=== PATIENT | male | born 1985 | race African-American/Black ===

== ENCOUNTER 2023-06-16 06:57 | Emergency (ER) | payer OTHER ==
[~2023-06-16] VITALS: Ht 188 cm; Wt 84.6 kg
[2023-06-16 06:59] VITALS: BP 122/62; TEMP 98; O2SAT 100
== END 2023-06-16 09:04 | disposition home or self-care (01) ==
LOC: M ED 06:57
DX: R19.7 Diarrhea, unspecified (principal)

== ENCOUNTER 2024-09-11 06:40 | Emergency (ER) | payer OTHER ==
[~2024-09-11] VITALS: Ht 188 cm; Wt 88.6 kg
[2024-09-11] MEDS: KETOROLAC 30 MG/ML 1ML VIAL IV ONE (07:24)
[2024-09-11] MEDS: ONDANSETRON 4MG 2ML VIAL IV ONE (07:24)
[2024-09-11 07:52] LABS: BASO % 0.9 % (0.0-1.0); EOS # 0.1 10^3/uL (0.0-0.5); EOS % 3.2 % (0.0-3.0); HEMOGLOBIN 14.9 g/dl (13.5-17.5); LYMPH # 2.7 10^3/uL (1.5-5.0); LYMPH % 61.4 % (24.0-44.0); MEAN CORPUSCULAR VOLUME 80.6 fl (80.0-96.0); MONO # 0.2 10^3/uL (0.0-0.8); MONO % 5.5 % (2.0-8.0); NEUTROPHILS # 1.3 10^3/uL (1.5-8.5); NEUTROPHILS % 28.8 % (36.0-66.0); PLATELET COUNT, AUTOMATED 249 10^3/uL (150-450); RED BLOOD COUNT 4.96 10^6/uL (4.30-6.10); WHITE BLOOD COUNT 4.4 10^3/uL (4.0-10.0)
[2024-09-11] MEDS ORDERED: HOME MED LIST COMPLETE! XX SCH (07:55)
[2024-09-11 08:04] LABS: ALBUMIN 3.7 G/DL (3.2-5.2); BILIRUBIN,DIRECT 0.2 MG/DL (<0.4); BILIRUBIN,TOTAL 0.9 MG/DL (0.3-1.2); TOTAL PROTEIN 7.3 G/DL (5.7-8.2)
[2024-09-11 08:06] LABS: MEAN CORPUSCULAR HGB CONC 37.3 g/dl (32.0-36.5)
[2024-09-11] MEDS ORDERED: ONDA-282 PO (08:43)
[2024-09-11 08:53] VITALS: BP 123/75; TEMP 99; O2SAT 99
== END 2024-09-11 08:56 | disposition home or self-care (01) ==
LOC: M ED 06:40
DX: A08.4 Viral intestinal infection, unspecified (principal); Z79.899 Other long term (current) drug therapy
CPT/HCPCS: 80047; 80076; 83690; 85025; 96374; 99284; J1885; J2405

== ENCOUNTER 2025-08-22 14:44 | Emergency (ER) | payer OTHER ==
[~2025-08-22] VITALS: Ht 188 cm; Wt 82.7 kg
[~2025-08-22 14:44] MED LIST: ONDA-282 PO
[2025-08-22 16:37] VITALS: TEMP 98
[2025-08-22] MEDS ORDERED: IBUP600T42 PO (18:56)
[2025-08-22 19:04] VITALS: BP 134/88; O2SAT 97
== END 2025-08-22 19:05 | disposition home or self-care (01) ==
LOC: M ED 14:44
DX: S80.01XA Contusion of right knee, initial encounter (principal); Y92.9 Unspecified place or not applicable; Y93.9 Activity, unspecified; Y99.9 Unspecified external cause status; W01.198A Fall on same level from slipping, tripping and stumbling with subsequent striking against other object, initial encounter; Z79.1 Long term (current) use of non-steroidal anti-inflammatories (NSAID)